=== PATIENT | male | born 1975 | race Hispanic/Latino ===

== ENCOUNTER 2022-02-14 08:13 | Outpatient (CLI) | payer OTHER | END 2022-02-14 08:14 | disposition home or self-care (01) | LOC: CSHLAB 08:13 | PROVIDERS: ATTEND Internal Medicine Gastroenterology | DX: Z12.11 Encounter for screening for malignant neoplasm of colon (principal); K21.9 Gastro-esophageal reflux disease without esophagitis; R10.9 Unspecified abdominal pain; Z20.822 Contact with and (suspected) exposure to COVID-19 | CPT/HCPCS: 87811 ==

== ENCOUNTER 2022-02-19 09:00 | Day surgery (SDC) | payer OTHER ==
[2022-02-15 10:39] VITALS: BMI 32.5
[2022-02-19] MEDS ORDERED: Lidocaine 1% MPF 2 ML VIAL ONE (10:35)
[2022-02-19] MEDS ORDERED: PROPOFOL 40 ML ONE ×2 (10:43→11:11)
[2022-02-19] MEDS ORDERED: Lidocaine 2% MPF 10 ML AMP (For Epidural Use) ONE (10:43)
== END 2022-02-19 12:39 | disposition home or self-care (01) ==
LOC: CSHSDC 09:00
PROVIDERS: ATTEND Internal Medicine Gastroenterology
PROC: 0DBH8ZZ Excision of Cecum, Via Natural or Artificial Opening Endoscopic (ICD-10-PCS; principal; 2022-02-19)
PROC: 0DBN8ZZ Excision of Sigmoid Colon, Via Natural or Artificial Opening Endoscopic (ICD-10-PCS; principal; 2022-02-19)
PROC: 0DB68ZZ Excision of Stomach, Via Natural or Artificial Opening Endoscopic (ICD-10-PCS; principal; 2022-02-19)
DX: Z12.11 Encounter for screening for malignant neoplasm of colon (principal); K63.5 Polyp of colon; K21.9 Gastro-esophageal reflux disease without esophagitis; K29.70 Gastritis, unspecified, without bleeding; K64.9 Unspecified hemorrhoids; C16.4 Malignant neoplasm of pylorus; Z20.822 Contact with and (suspected) exposure to COVID-19
CPT/HCPCS: 87811; 88305; 88341; 88342; J2704

== ENCOUNTER 2022-03-07 09:04 | Outpatient (CLI) | payer OTHER ==
[2022-03-07] MEDS ORDERED: Iopamidol 300 61% 100 ML VIAL FS ONE (15:47)
== END 2022-03-07 09:05 | disposition home or self-care (01) ==
LOC: CSHCT 09:04
PROVIDERS: ATTEND Internal Medicine Gastroenterology
DX: C16.9 Malignant neoplasm of stomach, unspecified (principal); R59.0 Localized enlarged lymph nodes
CPT/HCPCS: 74160; Q9967